=== PATIENT | male | born 1965 | race African-American/Black ===

== ENCOUNTER 2016-11-04 20:06 | Emergency (ER) | payer SELFPAY ==
[2016-11-04 20:32] LABS: #Basophils 0.2 thou/uL (0.0-0.2); #Eosinphils 0.2 thou/uL (0.0-0.7); #Lymphocytes 3.7 thou/uL (1.20-3.40); #Monocytes 0.7 thou/uL (0.11-0.59); #Neutrophils 4.6 thou/uL (1.40-6.50); %Basophils 1.9 % (0.0-1.0); %Eosinophils 1.9 % (0.0-10.0); %Lymphocytes 39.5 % (21.0-51.0); %Monocytes 7.7 % (0.0-10.0); %Neutrophils 48.9 % (42.0-75.0); Hemoglobin 15.3 g/dL (14.0-18.0); Mean Corpuscular HGB CONC 35.1 g/dL (32.0-36.0); Mean Corpuscular Hemoglobin 30.5 pg (27.0-31.0); Mean Corpuscular Volume 86.9 fl (80.0-94.0); Mean Platelet Volume 7.1 fL (7.4-10.4); Platelet Count 220 thou/uL (130-400); RBC Distribution Width 11.7 % (11.5-14.5); Red Blood Cell (RBC) Count 5.03 mill/uL (4.70-6.10); White Blood Cell (WBC) Count 9.4 thou/uL (4.8-10.8)
--- NOTE | 2016-11-04 20:32 | RAD ---
RADIOGRAPH CHEST 1 VIEW: 11/04/16 HISTORY: 51-year-old male with hypertension and intermittent left chest pain for the past month. FINDINGS: There are no air space densities, pulmonary edema, pneumothorax, or cardiomegaly. The lateral costo phrenic angles are sharp. IMPRESSION: No acute cardiopulmonary findings. charlie [] POS: ALEXANDRA
[2016-11-04 20:47] LABS: ALT (SGPT) 28 U/L (0-55); AST (SGOT) 23 U/L (5-34); Albumin 4.3 g/dL (3.5-5.0); Alkaline Phosphatase 112 U/L (40-150); Anion Gap 15 mmol/L (10-20); BUN (Urea Nitrogen) 15 mg/dL (8.9-20.6); Bilirubin, Total 0.3 mg/dL (0.2-1.2); Calc. Creatinine Clearance 0 mL/min (70-130); Calcium 9.4 mg/dL (7.8-10.44); Carbon Dioxide 23 mmol/L (22-29); Chloride 103 mmol/L (98-107); Estimated GFR-MDRD 73; Globulin 3.1 g/dL (2.4-3.5); Glucose 98 mg/dL (70-105); Protein, Total 7.4 g/dL (6.0-8.3); Sodium 137 mmol/L (136-145)
[2016-11-04 20:49] LABS: Troponin I Less than 0.010 ng/mL (< 0.028)
[2016-11-04 21:02] LABS: CKMB 5.2 ng/mL (0-6.6)
== END 2016-11-04 21:08 | disposition home or self-care (01) ==
LOC: NAV ERS 20:06
DX: R07.9 Chest pain, unspecified (principal); E78.5 Hyperlipidemia, unspecified; I10 Essential (primary) hypertension; F17.210 Nicotine dependence, cigarettes, uncomplicated
CPT/HCPCS: 71010; 80053; 82553; 84484; 85025; 85379; 93005; 94760

== ENCOUNTER 2016-12-04 23:34 | Emergency (ER) | payer SELFPAY ==
[~2016-12-04 23:34] MED LIST: Iopamidol 370 76% 100 ML VIAL ONE
[2016-12-05 00:18] LABS: Bilirubin Negative (Negative); Blood, Urine Negative (Negative); Clarity Clear (Clear); Glucose, Urine (Dipstick) Negative (Negative); Leukocyte Negative (Negative); Nitrite Negative (Negative); Protein, Urine (Dipstick) Negative (Neg-Trace); pH, Urine 6.5 (5.0-9.0)
[2016-12-05 00:50] LABS: #Basophils 0.1 thou/uL (0.0-0.2); #Eosinphils 0.1 thou/uL (0.0-0.7); #Lymphocytes 3.3 thou/uL (1.20-3.40); #Monocytes 0.8 thou/uL (0.11-0.59); #Neutrophils 4.6 thou/uL (1.40-6.50); %Basophils 1.7 % (0.0-1.0); %Eosinophils 1.4 % (0.0-10.0); %Monocytes 8.5 % (0.0-10.0); %Neutrophils 51.4 % (42.0-75.0); Hemoglobin 14.8 g/dL (14.0-18.0); Mean Corpuscular HGB CONC 36.1 g/dL (32.0-36.0); Mean Corpuscular Hemoglobin 30.8 pg (27.0-31.0); Mean Corpuscular Volume 85.3 fl (80.0-94.0); Platelet Count 211 thou/uL (130-400); RBC Distribution Width 11.3 % (11.5-14.5)
[2016-12-05 00:53] LABS: ALT (SGPT) 26 U/L (8-55); AST (SGOT) 21 U/L (5-34); Alkaline Phosphatase 110 U/L (40-150); Anion Gap 14 mmol/L (10-20); BUN (Urea Nitrogen) 14 mg/dL (8.9-20.6); Bilirubin, Total 0.5 mg/dL (0.2-1.2); CRP (Inflammatory) Less than 0.50 mg/dL (= or < 0.5); Calc. Creatinine Clearance 0 mL/min (70-130); Calcium 9.1 mg/dL (7.8-10.44); Carbon Dioxide 22 mmol/L (22-29); Chloride 106 mmol/L (98-107); Estimated GFR-MDRD 83; Globulin 3.2 g/dL (2.4-3.5); Glucose 93 mg/dL (70-105); Potassium 3.9 mmol/L (3.5-5.1); Protein, Total 7.2 g/dL (6.0-8.3); Sodium 138 mmol/L (136-145)
--- NOTE | 2016-12-05 08:26 | CT ---
PRELIMINARY REPORT/[facility]/EMERGENCY AFTER HOURS PROCEDURE: EXAM: CT Abdomen and Pelvis With Intravenous Contrast CLINICAL HISTORY: 51 years old, male; Pain; Abdominal pain and other: Low back pain; Generalized; Patient HX: Burning pain, intermittent, from low back and into center of abdomen, symmetric, no apparent or related or r emembered injury. Has been going on for a number of weeks. ; Additional info: Iv only per ermd TECHNIQUE: Axial computed tomography images of the abdomen and pelvis with intravenous contrast. This CT exam w as performed using one or more of the following dose reduction techniques: automated exposure contro l, adjustment of the mA and/or kV according to patient size, and/or use of iterative reconstruction technique. Coronal and sagittal reformatted images were created and reviewed. CONTRAST: 96 mL of ISOVUE 370 administered intravenously. COMPARISON: Prior CT report February 17, 2015. Prior images unavailable at the time of this emergent preliminary in terpretation. FINDINGS: LUNG BASES: Minimal dependent atelectasis. VASCULAR: Minimal atherosclerosis. No abdominal aortic aneurysm, dissection, or retroperitoneal hematoma. Small nonspecific para-aortic retroperitoneal lymph nodes are seen. PERITONEAL : No free air or free fluid. GI: No hiatal hernia. The stomach contains some fluid and gas. The stomach is not sufficiently distended to exclude wall t hickening. Perigastric vascularity appears slightly accentuated. Mild gastritis would be difficult t o exclude. Nonspecific fluid-filled loops of small bowel are seen within the abdomen and pelvis. No appearance of bowel obstruction. There is no focal mesenteric inflammatory stranding. Multiple small mesenteric lymph nodes are noted. Mild gastroenteritis would be difficult to exclude. Scattered fecal material and gas within portions of the colon and rectum. The rectum appears slightl y thick walled but this could be artifact due to duct lack of distention. Mild proctitis to be corre lated clinically. No evidence of acute diverticulitis. The appendix does not appear inflamed. HEPATOBILIARY, PANCREAS, SPLEEN: Sagittal hepatic length is 18.8 cm. No calcified gallstones or biliary dilatation. No pancreatic inflammation. Spleen not enlarged. ADRENALS, KIDNEYS, BLADDER, RETROPERITONEAL: Adrenals within normal limits. No hydronephrosis. Symmetric renal enhancement. No perinephric fluid. 5 mm left renal hypodensity to o small to further characterize but possibly a cyst. Mild enlarged prostate impressing along the bas e of the bladder. MUSCULOSKELETAL: Mild degenerative changes of the spine and within the pelvis. IMPRESSION: No free air, free fluid or focal mesenteric inflammation. Nonspecific gastrointestinal findings which are discussed above, could be correlated with the patien t's symptoms. Other incidental and non-emergent findings discussed above. Thank you for allowing us to participate in the care of your patient. Dictated and Authenticated by: Geraldo Mcgovern MD 12/05/2016 1:56 AM Central Time ([place] \T\ Steve) FINAL REPORT CT ABDOMEN AND PELVIS WITH CONTRAST FINDINGS: The liver, spleen, pancreas, and kidneys are unremarkable. Nonspecific fluid-filled distention of s mall bowel loops is seen. The appendix appears normal. Nonspecific periaortic lymph nodes. I am in agreement with the preliminary report. POS: OFF
== END 2016-12-05 03:29 | disposition home or self-care (01) ==
LOC: NAV ERS 23:34
DX: M54.10 Radiculopathy, site unspecified (principal); E78.5 Hyperlipidemia, unspecified; E78.00 Pure hypercholesterolemia, unspecified; I10 Essential (primary) hypertension; F17.210 Nicotine dependence, cigarettes, uncomplicated
CPT/HCPCS: 74177; 80053; 81003; 85025; 86140

== ENCOUNTER 2017-01-10 23:08 | Emergency (ER) | payer OTHER, SELFPAY ==
[2017-01-10] MEDS ORDERED: Ibuprofen 800 MG TAB ONE (23:26)
== END 2017-01-10 23:32 | disposition home or self-care (01) ==
LOC: NAV ERS 23:08
DX: G89.29 Other chronic pain (principal); M54.5 Low back pain; E78.5 Hyperlipidemia, unspecified; E78.00 Pure hypercholesterolemia, unspecified; I10 Essential (primary) hypertension; F17.210 Nicotine dependence, cigarettes, uncomplicated
CPT/HCPCS: 99283

== ENCOUNTER 2017-01-16 00:38 | Emergency (ER) | payer OTHER ==
[2017-01-16] MEDS ORDERED: Ketorolac Tromethamine 60 MG/2 ML VIAL ONE (00:57)
[2017-01-16] MEDS ORDERED: predniSONE 20 MG TAB ONE (00:57)
== END 2017-01-16 01:18 | disposition home or self-care (01) ==
LOC: NAV ERS 00:38
DX: M54.6 Pain in thoracic spine (principal); E78.5 Hyperlipidemia, unspecified; I10 Essential (primary) hypertension; F17.210 Nicotine dependence, cigarettes, uncomplicated; Z79.899 Other long term (current) drug therapy
CPT/HCPCS: 96372; J1885; J7506

== ENCOUNTER 2017-02-07 00:35 | Emergency (ER) | payer OTHER ==
[2017-02-07] MEDS ORDERED: Acetaminophen 500 MG TAB ONE (01:03)
[2017-02-07] MEDS ORDERED: Ibuprofen 200 MG TAB ONE (01:03)
== END 2017-02-07 01:11 | disposition home or self-care (01) ==
LOC: NAV ERS 00:35
DX: G89.29 Other chronic pain (principal); M54.5 Low back pain; I10 Essential (primary) hypertension; E78.5 Hyperlipidemia, unspecified; F17.210 Nicotine dependence, cigarettes, uncomplicated
CPT/HCPCS: 99283

== ENCOUNTER 2017-07-21 18:48 | Emergency (ER) | payer OTHER ==
[2017-07-21] MEDS ORDERED: Ketorolac Tromethamine 60 MG/2 ML VIAL ONE (19:04)
[2017-07-21 19:10] LABS: Bilirubin Negative (Negative); Blood, Urine Negative (Negative); Clarity Clear (Clear); Glucose, Urine (Dipstick) Negative (Negative); Leukocyte Negative (Negative); Nitrite Negative (Negative); Protein, Urine (Dipstick) Negative (Neg-Trace); pH, Urine 5.5 (5.0-9.0)
[2017-07-21 19:26] LABS: Specific Gravity, Urine 1.024 (1.002-1.036)
--- NOTE | 2017-07-21 20:35 | RAD ---
THREE VIEWS LUMBAR SPINE 07/21/17 HISTORY: Back pain. COMPARISON: None. FINDINGS: Five lumbar type vertebral bodies. Vertebral body height is maintained. Disc space heights are preser lauri. No fracture or malalignment. IMPRESSION: Unremarkable lumbar spine three views. POS: ALEXANDRA
== END 2017-07-21 20:10 | disposition home or self-care (01) ==
LOC: NAV ERS 18:48
DX: M54.5 Low back pain (principal); E78.5 Hyperlipidemia, unspecified; I10 Essential (primary) hypertension; F17.210 Nicotine dependence, cigarettes, uncomplicated
CPT/HCPCS: 72100; 81003; 96372; J1885

== ENCOUNTER 2017-11-05 00:43 | Emergency (ER) | payer OTHER, SELFPAY | END 2017-11-05 01:26 | disposition home or self-care (01) | LOC: NAV ERS 00:43 | DX: K02.9 Dental caries, unspecified (principal); J02.9 Acute pharyngitis, unspecified; E78.5 Hyperlipidemia, unspecified; I10 Essential (primary) hypertension; F17.210 Nicotine dependence, cigarettes, uncomplicated | CPT/HCPCS: 87081; 87430; 99283 ==

== ENCOUNTER 2017-11-11 23:33 | Emergency (ER) | payer OTHER, SELFPAY ==
[2017-11-12] MEDS ORDERED: Amoxicillin/Potassium Clav 875 MG TAB ONE (00:06)
[2017-11-12] MEDS ORDERED: Ibuprofen 800 MG TAB ONE (00:06)
== END 2017-11-12 00:12 | disposition home or self-care (01) ==
LOC: NAV ERS 23:33
DX: J01.90 Acute sinusitis, unspecified (principal); E78.5 Hyperlipidemia, unspecified; I10 Essential (primary) hypertension; F17.210 Nicotine dependence, cigarettes, uncomplicated
CPT/HCPCS: 99283

== ENCOUNTER 2018-01-09 13:08 | Emergency (ER) | payer OTHER | END 2018-01-09 14:00 | disposition home or self-care (01) | LOC: NAV ERS 13:08 | DX: J02.9 Acute pharyngitis, unspecified (principal); F17.210 Nicotine dependence, cigarettes, uncomplicated; I10 Essential (primary) hypertension; E78.5 Hyperlipidemia, unspecified | CPT/HCPCS: 99283 ==

== ENCOUNTER 2018-02-14 19:28 | Emergency (ER) | payer OTHER ==
[2018-02-14] MEDS ORDERED: cefTRIAXone\\ROCEPHIN 1 GM VIAL ONE (19:53)
[2018-02-14] MEDS ORDERED: methylPREDNISolone Acetate 40 mg/ml Vial ONE (19:53)
[2018-02-14] MEDS ORDERED: Lidocaine 1% 20 ML MDV ONE (19:53)
== END 2018-02-14 20:15 | disposition home or self-care (01) ==
LOC: NAV ERS 19:28
DX: J01.90 Acute sinusitis, unspecified (principal); I10 Essential (primary) hypertension; F17.210 Nicotine dependence, cigarettes, uncomplicated; E78.00 Pure hypercholesterolemia, unspecified
CPT/HCPCS: 99283; J0696; J1030; J2001

== ENCOUNTER 2018-05-26 02:21 | Emergency (ER) | payer OTHER ==
[2018-05-26] MEDS ORDERED: Ketorolac Tromethamine 60 MG/2 ML VIAL ONE (02:35)
[2018-05-26] MEDS ORDERED: Ondansetron ODT 4 MG TAB ONE (02:39)
[2018-05-26] MEDS ORDERED: Acetaminophen 500 MG TAB ONE (02:39)
== END 2018-05-26 02:55 | disposition home or self-care (01) ==
LOC: NAV ERS 02:21
DX: R51 Headache (principal); R11.0 Nausea; E78.5 Hyperlipidemia, unspecified; I10 Essential (primary) hypertension; F17.210 Nicotine dependence, cigarettes, uncomplicated
CPT/HCPCS: 96372; J1885; Q0162

== ENCOUNTER 2018-05-27 19:06 | Emergency (ER) | payer OTHER ==
[2018-05-27 20:14] LABS: #Basophils 0.2 thou/uL (0.0-0.2); #Eosinphils 0.2 thou/uL (0.0-0.7); #Lymphocytes 3.4 thou/uL (1.20-3.40); #Monocytes 0.7 thou/uL (0.11-0.59); #Neutrophils 4.7 thou/uL (1.40-6.50); %Basophils 1.7 % (0.0-1.0); %Eosinophils 2.1 % (0.0-10.0); %Monocytes 7.7 % (0.0-10.0); %Neutrophils 51.6 % (42.0-75.0); Hemoglobin 15.2 g/dL (14.0-18.0); Mean Corpuscular HGB CONC 34.1 g/dL (32.0-36.0); Mean Corpuscular Hemoglobin 30.2 pg (27.0-31.0); Mean Corpuscular Volume 88.4 fL (78.0-98.0); Mean Platelet Volume 7.4 fL (7.4-10.4); Platelet Count 257 thou/uL (130-400); RBC Distribution Width 11.2 % (11.5-14.5); Red Blood Cell (RBC) Count 5.05 mill/uL (4.70-6.10); White Blood Cell (WBC) Count 9.2 thou/uL (4.8-10.8)
[2018-05-27 20:22] LABS: ALT (SGPT) 36 U/L (8-55); AST (SGOT) 29 U/L (5-34); Albumin 4.6 g/dL (3.5-5.0); Alkaline Phosphatase 100 U/L (40-150); Anion Gap 13 mmol/L (10-20); BUN (Urea Nitrogen) 17 mg/dL (8.9-20.6); Bilirubin, Total 0.4 mg/dL (0.2-1.2); Calc. Creatinine Clearance 0 mL/min (70-130); Calcium 9.7 mg/dL (7.8-10.44); Carbon Dioxide 26 mmol/L (22-29); Chloride 104 mmol/L (98-107); Estimated GFR-MDRD 89; Globulin 3.4 g/dL (2.4-3.5); Glucose 98 mg/dL (70-105); Lipase 174 U/L (8-78); Potassium 4.1 mmol/L (3.5-5.1); Sodium 139 mmol/L (136-145)
[2018-05-27] MEDS ORDERED: Sodium Chloride 0.9% 500 ML ONE (21:28)
== END 2018-05-27 21:28 | disposition home or self-care (01) ==
LOC: NAV ERS 19:06
DX: K60.2 Anal fissure, unspecified (principal); K85.90 Acute pancreatitis without necrosis or infection, unspecified; K62.5 Hemorrhage of anus and rectum; E78.5 Hyperlipidemia, unspecified; I10 Essential (primary) hypertension; F17.210 Nicotine dependence, cigarettes, uncomplicated
CPT/HCPCS: 80053; 83690; 85025; 99283; J7050

== ENCOUNTER 2018-12-08 02:14 | Emergency (ER) | payer OTHER ==
[2018-12-08] MEDS ORDERED: Naproxen 500 MG TAB ONE (02:49)
== END 2018-12-08 02:56 | disposition home or self-care (01) ==
LOC: NAV ERS 02:14
DX: G89.29 Other chronic pain (principal); M54.5 Low back pain; F17.210 Nicotine dependence, cigarettes, uncomplicated
CPT/HCPCS: 99283

== ENCOUNTER 2019-05-10 01:17 | Emergency (ER) | payer OTHER | END 2019-05-10 02:03 | disposition home or self-care (01) | LOC: NAV ERS 01:17 | DX: J02.9 Acute pharyngitis, unspecified (principal); J30.2 Other seasonal allergic rhinitis; M54.5 Low back pain; G89.29 Other chronic pain; E78.5 Hyperlipidemia, unspecified; E78.00 Pure hypercholesterolemia, unspecified; I10 Essential (primary) hypertension; F17.210 Nicotine dependence, cigarettes, uncomplicated | CPT/HCPCS: 99283 ==

== ENCOUNTER 2020-01-10 03:19 | Emergency (ER) | payer BC, SELFPAY ==
[2020-01-10] MEDS ORDERED: Ketorolac Tromethamine 30 MG/ML VIAL ONE (03:31)
== END 2020-01-10 03:50 | disposition home or self-care (01) ==
LOC: NAV ERS 03:19
DX: M79.10 Myalgia, unspecified site (principal); M54.5 Low back pain; E78.5 Hyperlipidemia, unspecified; I10 Essential (primary) hypertension; F17.210 Nicotine dependence, cigarettes, uncomplicated
CPT/HCPCS: 96372; 99283; J1885

== ENCOUNTER 2020-05-08 00:53 | Emergency (ER) | payer BC, OTHER | END 2020-05-08 01:25 | disposition home or self-care (01) | LOC: NAV ERS 00:53 | DX: R22.31 Localized swelling, mass and lump, right upper limb (principal); E78.5 Hyperlipidemia, unspecified; I10 Essential (primary) hypertension; E78.00 Pure hypercholesterolemia, unspecified; Z87.891 Personal history of nicotine dependence | CPT/HCPCS: 99281 ==

== ENCOUNTER 2020-11-13 21:07 | Emergency (ER) | payer BC ==
[2020-11-13] MEDS ORDERED: Lidocaine 1% w/Epinephrine 1:100K 30 ML VIAL ONE (22:36)
[2020-11-13] MEDS ORDERED: Ibuprofen 200 MG TAB ONE (22:37)
[2020-11-13] MEDS ORDERED: Acetaminophen 325 MG TAB ONE (22:37)
[2020-11-13] MEDS ORDERED: Amoxicillin/Potassium Clav 875 MG TAB ONE (23:31)
== END 2020-11-13 23:39 | disposition home or self-care (01) ==
LOC: NAV ERS 21:07
DX: K04.7 Periapical abscess without sinus (principal); E78.5 Hyperlipidemia, unspecified; E78.00 Pure hypercholesterolemia, unspecified; I10 Essential (primary) hypertension; Z87.891 Personal history of nicotine dependence
CPT/HCPCS: 41800

== ENCOUNTER 2021-04-01 16:04 | Emergency (ER) | payer BC | END 2021-04-01 16:45 | disposition home or self-care (01) | LOC: NAV ERS 16:04 | DX: J01.90 Acute sinusitis, unspecified (principal); J34.89 Other specified disorders of nose and nasal sinuses; E78.5 Hyperlipidemia, unspecified; E78.00 Pure hypercholesterolemia, unspecified; I10 Essential (primary) hypertension; Z87.891 Personal history of nicotine dependence | CPT/HCPCS: 99283 ==

== ENCOUNTER 2021-04-10 17:59 | Emergency (ER) | payer BC | END 2021-04-10 18:32 | disposition home or self-care (01) | LOC: NAV ERS 17:59 | DX: J02.9 Acute pharyngitis, unspecified (principal); E78.5 Hyperlipidemia, unspecified; I10 Essential (primary) hypertension; Z87.891 Personal history of nicotine dependence; Z79.899 Other long term (current) drug therapy | CPT/HCPCS: 99283 ==

== ENCOUNTER 2021-05-01 20:22 | Emergency (ER) | payer BC | END 2021-05-01 21:41 | disposition home or self-care (01) | LOC: NAV ERS 20:22 | DX: J30.9 Allergic rhinitis, unspecified (principal); E78.5 Hyperlipidemia, unspecified; E78.00 Pure hypercholesterolemia, unspecified; I10 Essential (primary) hypertension; Z87.891 Personal history of nicotine dependence | CPT/HCPCS: 87081; 87430; 99283 ==

== ENCOUNTER 2022-08-19 02:52 | Emergency (ER) | payer BC ==
[2022-08-19] MEDS ORDERED: Ibuprofen 200 MG TAB ONE (03:24)
[2022-08-19 03:31] LABS: #Basophils 0.2 thou/uL (0.0-0.2); #Eosinphils 0.2 thou/uL (0.0-0.7); #Lymphocytes 3.9 thou/uL (1.20-3.40); #Monocytes 0.8 thou/uL (0.11-0.59); #Neutrophils 4.4 thou/uL (1.40-6.50); %Basophils 1.7 % (0.0-1.0); %Eosinophils 1.8 % (0.0-10.0); %Lymphocytes 41.6 % (21.0-51.0); %Monocytes 8.5 % (0.0-10.0); %Neutrophils 46.4 % (42.0-75.0); Hemoglobin 17.4 g/dL (14.0-18.0); Mean Corpuscular HGB CONC 33.8 g/dL (32.0-36.0); Mean Corpuscular Hemoglobin 30.5 pg (27.0-31.0); Mean Corpuscular Volume 90.1 fl (78.0-98.0); Mean Platelet Volume 7.4 fL (7.4-10.4); Platelet Count 274 10x3/uL (130-400); RBC Distribution Width 11.8 % (11.5-14.5); White Blood Cell (WBC) Count 9.5 10x3/uL (4.8-10.8)
[2022-08-19 03:41] LABS: Anion Gap 15 mmol/L (10-20); BUN (Urea Nitrogen) 15 mg/dL (8.4-25.7); Calc. Creatinine Clearance 0 mL/min (70-130); Calcium 9.5 mg/dL (7.8-10.44); Carbon Dioxide 24 mmol/L (22-29); Chloride 102 mmol/L (98-107); Estimated GFR 86; Glucose 116 mg/dL (70-105); Potassium 4.1 mmol/L (3.5-5.1); Sodium 137 mmol/L (136-145)
== END 2022-08-19 04:05 | disposition home or self-care (01) ==
LOC: NAV ERS 02:52
DX: M60.9 Myositis, unspecified (principal); E78.00 Pure hypercholesterolemia, unspecified; I10 Essential (primary) hypertension; Z87.891 Personal history of nicotine dependence
CPT/HCPCS: 36415; 80048; 82550; 85025; 99283

== ENCOUNTER 2022-11-29 20:55 | Emergency (ER) | payer BC ==
[2022-11-29] MEDS ORDERED: predniSONE 20 MG TAB ONE (22:14)
== END 2022-11-29 22:22 | disposition home or self-care (01) ==
LOC: NAV ERS 20:55
DX: L40.9 Psoriasis, unspecified (principal); E78.00 Pure hypercholesterolemia, unspecified; I10 Essential (primary) hypertension; Z87.891 Personal history of nicotine dependence
CPT/HCPCS: 99282; J7512

== ENCOUNTER 2024-02-28 23:28 | Emergency (ER) | payer BC ==
[2024-02-28] MEDS ORDERED: Naproxen 500 MG TAB ONE (23:46)
[2024-02-28 23:50] LABS: Bacteria/HPF None Seen HPF (None Seen); Bilirubin Negative (Negative); Blood, Urine Negative (Negative); CAUTI Indications for Culture Dysuria,urgency,freq; Clarity Clear (Clear); Glucose, Urine (Dipstick) Negative (Negative); Ketone, Urine Negative (Negative); Leukocyte Negative (Negative); Nitrite Negative (Negative); Protein, Urine (Dipstick) Negative (Neg-Trace); RBC/HPF None Seen HPF (0-3); Squamous Epithelial None Seen HPF (0-3); Urobilinogen 0.2 mg/dL (Less than 2); WBC/HPF None Seen HPF (0-3); pH, Urine 6.5 (5.0-9.0)
[2024-02-28 23:51] LABS: Urine Culture Reflex No No
== END 2024-02-28 23:59 | disposition home or self-care (01) ==
LOC: NAV ERS 23:28
DX: S39.012A Strain of muscle, fascia and tendon of lower back, initial encounter (principal); I10 Essential (primary) hypertension; Z87.891 Personal history of nicotine dependence; X50.1XXA Overexertion from prolonged static or awkward postures, initial encounter; Y99.0 Civilian activity done for income or pay
CPT/HCPCS: 81001; 99283

== ENCOUNTER 2024-03-21 00:20 | Emergency (ER) | payer BC, SELFPAY ==
[2024-03-21 01:01] LABS: #Basophils 0.1 thou/uL (0.0-0.2); #Eosinphils 0.2 thou/uL (0.0-0.7); #Lymphocytes 3.9 thou/uL (1.20-3.40); #Monocytes 0.7 thou/uL (0.11-0.59); #Neutrophils 4.4 thou/uL (1.40-6.50); %Basophils 1.2 % (0.0-1.0); %Lymphocytes 41.7 % (21.0-51.0); %Monocytes 7.7 % (0.0-10.0); %Neutrophils 47.4 % (42.0-75.0); Hematocrit 43.7 % (42.0-52.0); Mean Corpuscular HGB CONC 34.4 g/dL (32.0-36.0); Mean Corpuscular Hemoglobin 29.5 pg (27.0-31.0); Mean Corpuscular Volume 85.7 fl (78.0-98.0); Mean Platelet Volume 6.8 fL (7.4-10.4); Platelet Count 228 10x3/uL (130-400); RBC Distribution Width 11.2 % (11.5-14.5); White Blood Cell (WBC) Count 9.3 10x3/uL (4.8-10.8)
[2024-03-21 01:02] LABS: Bilirubin Negative (Negative); Blood, Urine Negative (Negative); Clarity Clear (Clear); Glucose, Urine (Dipstick) Negative (Negative); Ketone, Urine Negative (Negative); Leukocyte Negative (Negative); Nitrite Negative (Negative); Protein, Urine (Dipstick) Negative (Neg-Trace); Urobilinogen 0.2 mg/dL (Less than 2); pH, Urine 5.5 (5.0-9.0)
[2024-03-21 01:05] LABS: Bacteria/HPF Rare-Few HPF (None Seen); CAUTI Indications for Culture Pelvic or flank pain; RBC/HPF None Seen HPF (0-3); WBC/HPF 0-3 HPF (0-3)
[2024-03-21 01:06] LABS: Urine Culture Reflex No No
[2024-03-21 01:20] LABS: ALT (SGPT) 21 U/L (8-55); AST (SGOT) 19 U/L (5-34); Albumin 3.9 g/dL (3.5-5.0); Alkaline Phosphatase 136 U/L (40-110); Anion Gap 14 mmol/L (10-20); BUN (Urea Nitrogen) 19 mg/dL (8.4-25.7); Bilirubin, Total 0.4 mg/dL (0.2-1.2); Calc. Creatinine Clearance 0 mL/min (70-130); Calcium 9.1 mg/dL (7.8-10.44); Carbon Dioxide 21 mmol/L (22-29); Chloride 106 mmol/L (98-107); Estimated GFR 84; Globulin 3.4 g/dL (2.4-3.5); Glucose 111 mg/dL (70-105); Potassium 3.6 mmol/L (3.5-5.1); Protein, Total 7.3 g/dL (6.0-8.3); Sodium 137 mmol/L (136-145)
[2024-03-21] MEDS ORDERED: Ibuprofen 800 MG TAB ONE (01:36)
== END 2024-03-21 01:44 | disposition home or self-care (01) ==
LOC: NAV ERS 00:20
DX: R10.9 Unspecified abdominal pain (principal); I10 Essential (primary) hypertension; Z79.899 Other long term (current) drug therapy; Z87.891 Personal history of nicotine dependence
CPT/HCPCS: 36415; 80053; 81001; 85025; 99284

== ENCOUNTER 2024-07-27 18:10 | Emergency (ER) | payer BC, SELFPAY | END 2024-07-27 19:24 | disposition home or self-care (01) | LOC: NAV ERS 18:10 | DX: M54.16 Radiculopathy, lumbar region (principal); I10 Essential (primary) hypertension; F17.210 Nicotine dependence, cigarettes, uncomplicated | CPT/HCPCS: 99283 ==

== ENCOUNTER 2025-05-28 18:44 | Emergency (ER) | payer BC, OTHER ==
[2025-05-28] MEDS ORDERED: Ketorolac Tromethamine 30 MG (1 mL) VIAL ONE (19:49)
== END 2025-05-28 20:47 | disposition home or self-care (01) ==
LOC: NAV ERS 18:44
DX: M25.512 Pain in left shoulder (principal); I10 Essential (primary) hypertension; F17.210 Nicotine dependence, cigarettes, uncomplicated
CPT/HCPCS: 96372; 99283; J1885